=== PATIENT | female | born 1975 | race American Indian/Alaskan Native ===

== ENCOUNTER 2016-07-26 07:45 | Inpatient (IN) | payer MEDICAID ==
[2016-07-26] MEDS ORDERED: MINERAL OIL PO PRN (07:57)
[2016-07-26] MEDS ORDERED: XYLOCAINE 2% INFILTRATI ONE (07:57)
[2016-07-26] MEDS ORDERED: POLYCILLIN/NS 2 GM/100 ML 2 GM/100 ML BAG IV ONE (07:57)
[2016-07-26] MEDS ORDERED: BRETHINE SUB-Q PRN (07:57)
[2016-07-26] MEDS ORDERED: ZOFRAN IV PRN (07:57)
[2016-07-26] MEDS ORDERED: ePHEDrine SULFATE IV PRN (07:57)
[2016-07-26] MEDS ORDERED: PITOCin/NS 20 UNIT/1000ML DRIP 20 UNITS/1,000 ML BAG IV SCH ×2 (08:00→09:56)
[2016-07-26] MEDS ORDERED: LACTATED RINGERS 1,000 ML IV SCH (08:00)
[2016-07-26] MEDS ORDERED: PITOCin/NS 20 UNIT/1000ML DRIP 20,000 MILLIUNITS/1,000 ML BAG IV ONE (08:11)
[2016-07-26 08:20] LABS: Hematocrit 31.7 % (30.3-42.9); Hemoglobin 10.7 gm/dl (10.1-14.3); Mean Corpuscular HGB Conc 34 % (30-34); Mean Corpuscular Hemoglobin 30 pg (28-32); Mean Corpuscular Volume 88 fl (79-97); Platelet Count 200 K/mm3 (140-440); Red Blood Count 3.62 M/mm3 (3.65-5.03); Red Cell Distribution Width 13.5 % (13.2-15.2); White Blood Count 15.9 K/mm3 (4.5-11.0)
--- NOTE | 2016-07-26 08:25 | History and Physical Report ---
History of Present Illness Date of examination: 07/26/16 Date of admission: 07/26/16 07:45 Chief complaint: SROM and contractions, no care, reports cocaine use 2 days ago. Pt 5 cms and SROM with clear fluid upon arrival, she quickly advanced to 10cms and spontaneously delivered a female infant. History of present illness: No care, reports LMP around november 19 but pt is not a reliable historian. She reports + use of cocaine, last used 2 days ago She denies any STIs or infections denies medical hx denies surgical hx OB hx - 3 previous live births, vaginally, all complicated by GDM, 2 of them complicated by pre-e. Patient is unsure of weights or gestations All three children reside with her mother Past History Past Medical History: no pertinent history Past Surgical History: no surgical history [employer] W[employer]ER History: denies: chlamydia, hepatitis B, hepatitis C, herpes, HIV, syphilis Social history: single, other (cocaine use, pt does not want to see , plans of placing infant for adoption but does not have any plans made as of yet) - Obstetrical History : 4 Para: 3 Number of Living Children: 3 Medications and Allergies Allergies Allergy/AdvReac Type Severity Reaction Status Date / Time No Known Allergies Allergy Unverified 07/26/16 07:56 Active Meds: Active Medications Ampicillin Sodium (Polycillin/Ns 1 Gm/50 Ml) 1 gm in 50 mls @ 0 mls/hr IV Q4HR GABBY PRN Reason: Protocol Lactated Ringer's (Lactated Ringers) 1,000 mls @ 125 mls/hr IV DIRECT GABBY Oxytocin/Sodium Chloride (Pitocin/Ns 20 Unit/1000ml Drip) 20 units in 1,000 mls @ 125 mls/hr IV DIRECT GABBY Mineral Oil (Mineral Oil) 30 ml PO QHS PRN PRN Reason: Constipation Ondansetron HCl (Zofran) 4 mg IV Q8H PRN PRN Reason: Nausea And Vomiting Review of Systems All systems: negative - Vital Signs Vital signs: Vital Signs Pulse BP 68 140/65 07/26/16 07:52 07/26/16 07:52 Temp Pulse Resp BP Pulse Ox 68 140/65 07/26/16 07:52 07/26/16 07:52 - Physical Exam Breasts: Positive: normal Cardiovascular: Regular rate Lungs: Positive: Clear to auscultation, Normal air movement Abdomen: Positive: normal appearance, soft Genitourinary (Female): Positive: normal external genitalia, normal perenium Vulva: both: normal Vagina: Positive: normal moisture (clear amniotic fluid) Uterus: Positive: normal size Anus/Rectum: Positive: normal perianal skin Extremities: Positive: normal - Obstetrical FHR: category 1 Uterine Contraction Monitor Mode: External Cervical Dilatation: 10 Cervical Effacement Percentage: 100 station: +3 Uterine Tone Measurement Phase: Contraction Uterine Contraction Intensity: Strong/Firm Results Result Diagrams: 07/26/16 08:00 Abnormal lab results 07/26/16 Range/Units 08:00 WBC 15.9 H (4.5-11.0) K/mm3 RBC 3.62 L (3.65-5.03) M/mm3 All other labs normal. Assessment and Plan Admission orders in EMR, profile + UDS ordered. NICU Present for delivery. - Patient Problems (1) Active labor Onset Date: 07/26/16 Current Visit: Yes Status: Acute (2) Cocaine abuse Current Visit: Yes Status: Acute (3) GBS screening not performed Onset Date: 07/26/16 Current Visit: Yes Status: Acute (4) No care in current Current Visit: Yes Status: Acute Qualifiers: Trimester: T (5) (normal spontaneous vaginal delivery) Current Visit: Yes Status: Acute
--- NOTE | 2016-07-26 08:45 | Procedure Note ---
OB Delivery Note - Delivery Date of Delivery: 07/26/16 ( Female) Desk Representative: DIXIE CARLSON Estimated blood loss: 200cc - Vaginal Delivery presentation: vertex Delivery position: OA (JAEL) Intrapartum events: no care, labor-<37 weeks, precipitous labor - <3hr Delivery induction: none Delivery monitor: external FHT, external uterine Route of delivery: Delivery placenta: spontaneous Delivery cord: nuchal cord Episiotomy: none Delivery laceration: none Anesthesia: none Delivery comments: Patient arrived and delivered quickly, no care, unknown gestation but thought to be approx 35 weeks. Patient out of control, thrashing around the bed and screaming. After delivery of head, patient thrust hips upward into the air and refused to push shoulders. After approx 30 seconds, patient pushed out shoulders. Loose nuchal cord somersaulted through after delivery. Infant handed off to awaiting NICU and MANAGER GAS. Cord blood collected. Placenta delivered intact and complete, fund firm, lochia scant. EBL 200, apgars 8/9, wt 5#4oz. Infant to NICU after delivery, mother LDR stable. - Infant A at 1 minute: 8 at 5 minutes: 9 Gender: Female (5#4)
[2016-07-26 09:00] LABS: HIV-1 Antigen p24 Non React (Non React); HIVR-1/2 Ab Non React (Non React)
[2016-07-26] MEDS: MOTRIN PO PRN ×2 (09:03→21:18)
[2016-07-26 09:39] LABS: Urine Drugs of Abuse Note Disclamer
[2016-07-26] MEDS ORDERED: BENADRYL PO PRN (09:56)
[2016-07-26] MEDS ORDERED: TUCKS PAD TP PRN (09:56)
[2016-07-26] MEDS ORDERED: LANSINOH TP PRN (09:56)
[2016-07-26] MEDS ORDERED: MILK OF MAGNESIA PO PRN (09:56)
[2016-07-26] MEDS ORDERED: DERMOPLAST TP PRN (09:56)
[2016-07-26] MEDS ORDERED: SODIUM CHLORIDE FLUSH SYRINGE 10 ML IV NR (09:56)
[2016-07-26] MEDS ORDERED: PHENERGAN PO PRN (09:56)
[2016-07-26] MEDS ORDERED: TYLENOL PO PRN (09:56)
[2016-07-26] MEDS ORDERED: DULCOLAX PR PRN (09:56)
[2016-07-26] MEDS ORDERED: PRENATAL VITAMIN PO SCH (10:00)
[2016-07-26] MEDS ORDERED: POLYCILLIN/NS 1 GM/50 ML 1 GM/50 ML BAG IV SCH (11:58)
[2016-07-26] MEDS: MOTRIN PO SCH (16:38)
[2016-07-26] MEDS: COLACE PO SCH ×2 (18:57→22:15)
[2016-07-26 20:59] LABS: Hematocrit 28.8 % (30.3-42.9); Hemoglobin 9.6 gm/dl (10.1-14.3)
[2016-07-27] MEDS: MOTRIN PO SCH (05:47)
[2016-07-27] MEDS ORDERED: BOOSTRIX IM ONE (08:36)
[2016-07-27 09:25] VITALS: BP 105/52
[2016-07-27] MEDS ORDERED: FLUARIX QUAD 2016-2017(36 MOS+) IM ONE (12:00)
--- NOTE | 2016-07-27 12:20 | Discharge Summary ---
Providers - Providers Date of Admission: 07/26/16 07:45 Date of discharge: 07/27/16 Attending physician: EDWIN PETE 07/26/16 09:56 Consult to Case Management [CONS] Routine Services Needed at Discharge: Hospital Librarian Primary care physician: EDWIN PETE Hospitalization Reason for admission: active labor (, no PNC, admitted in labor, baby in NICU for adoption), labor (less than 37 weeks - very uncertain dates, 5# 4oz female) Delivery: (precipitous labor) Episiotomy: none Laceration: none Other procedures: none complications: none Discharge diagnosis: other baby: female (5#4oz) Hospital course: did well Condition at discharge: Good Disposition: DISCHARGED TO HOME OR SELFCARE - Discharge Diagnoses (1) (normal spontaneous vaginal delivery) Status: Acute (2) No care in current Status: Acute Qualifiers: Trimester: T Plan - Provider Discharge Summary Activity: no sex for 6 weeks, no strenuous exercise Diet: routine Instructions: routine Additional instructions: [] Smoking cessation referral if applicable(refer to patient education folder for contact #) [] Refer to [facility] Booklet Call your doctor immediately for: * Fever > 100.5 * Heavy vaginal bleeding ( >1 pad per hour) * Severe persistent headache * Shortness of breath * Reddened, hot, painful area to leg or breast * Drainage or odor from incision. * Keep incision clean and dry at all times and follow doctor's instructions regarding bathing/showering - Follow up plan Follow up: EDWIN PETE MD [Primary Care Provider] - 7 Days
== END 2016-07-27 14:25 | disposition home or self-care (01) | DRG 775 ==
LOC: EEVIPCON 07:45 → LD 07:45 → OB 09:55
PROVIDERS: ADMIT Obstetrics & Gynecology; ATTEND Obstetrics & Gynecology
PROC: 10E0XZZ Delivery of Products of Conception, External Approach (ICD-10-PCS; principal; 2016-07-26)
DX: O60.14X0 Preterm labor third trimester with preterm delivery third trimester, not applicable or unspecified (principal); O99.323 Drug use complicating pregnancy, third trimester; F14.10 Cocaine abuse, uncomplicated; O62.3 Precipitate labor; Z3A.35 35 weeks gestation of pregnancy; Z37.0 Single live birth; O09.33 Supervision of pregnancy with insufficient antenatal care, third trimester; O69.81X0 Labor and delivery complicated by cord around neck, without compression, not applicable or unspecified
CPT/HCPCS: 36415; 80307; 85014; 85018; 85027; 86592; 86706; 86762; 86850; 86900; 86901; 87517; 87806; 88307; J2590